=== PATIENT | female | born 1995 | race Caucasian/White ===

== ENCOUNTER → 2019-05-25 17:53 | Outpatient (CLI) | payer MEDICAID ==
[2016-01-11 22:56] VITALS: BMI 26.0
[~2019-05-25 17:53] MED LIST: AMBIEN5 MG PO; EPIFOAM10 GM TOPICAL; HYDROCODON-ACE1 EAC7 PO; IBUPROFEN600 MG PO; PRENAVITE1 TAB PO; TUCKS MEDICATE1 EACH TOPICAL; [UNRECOGNIZED DRUG - OTHER] TOPICAL
[2019-05-25 18:32] LABS: APPEARANCE CLEAR (CLEAR); BILIRUBIN NEGATIVE (NEGATIVE); COLOR STRAW (YELLOW); GLUCOSE NEGATIVE (NEGATIVE); KETONE NEGATIVE (NEGATIVE); NITRITE NEGATIVE (NEGATIVE); PROTEIN NEGATIVE (NEGATIVE); UROBILINOGEN NORMAL (NORMAL)
== END | disposition home or self-care (01) ==
LOC: D.LDO 17:53
PROVIDERS: ATTEND Obstetrics & Gynecology
DX: O26.899 Other specified pregnancy related conditions, unspecified trimester (principal); Z3A.00 Weeks of gestation of pregnancy not specified; R51 Headache

== ENCOUNTER 2019-07-02 00:54 | Outpatient (CLI) | payer MEDICAID ==
[2016-01-11 22:56] VITALS: BMI 26.0
[2019-07-02 01:30] LABS: APPEARANCE HAZY (CLEAR); BILIRUBIN NEGATIVE (NEGATIVE); COLOR YELLOW (YELLOW); GLUCOSE NEGATIVE (NEGATIVE); KETONE NEGATIVE (NEGATIVE); NITRITE NEGATIVE (NEGATIVE); PROTEIN 1+ mg/dL (NEGATIVE); UROBILINOGEN NORMAL (NORMAL)
[2019-07-02 01:31] LABS: BACTERIA MODERATE /hpf (NONE SEEN); EPITHELIAL CELLS 0-5 /hpf (0-5); MUCUS <1+ /lpf (NONE SEEN); RED CELLS - URINE 0-5 /hpf (0-5)
== END 2019-07-02 02:40 | disposition home or self-care (01) ==
LOC: D.LDO 00:54
PROVIDERS: ATTEND Student in an Organized Health Care Education/Training Program
DX: O26.893 Other specified pregnancy related conditions, third trimester (principal)

== ENCOUNTER 2019-07-23 04:55 | Inpatient (IN) | payer MEDICAID ==
[~2019-07-23] VITALS: Ht 152.4 cm; Wt 68.9 kg
[2019-07-23] MEDS ORDERED: BUSPAR10 MG PO (05:09)
[2019-07-23] MEDS ORDERED: PHENERGAN25 M1 PO (05:10)
[2019-07-23] MEDS ORDERED: ZOFRAN4 MG PO (05:11)
[2019-07-23 05:13] VITALS: BP 132/75; Ht 152.4 cm; Wt 68.9 kg
[2019-07-23 06:34] LABS: HEMOGLOBIN 10.2 g/dL (12-16); MCH 26.8 pg (26.0-34.0); MCHC 32.9 g/dL (31.0-37.0); MCV 81.4 fL (80.0-100.0); MEAN PLATELET VOLUME 9.8 fL (7.4-10.4); RBC 3.81 10x6/uL (4.00-5.40); RDW 14.4 % (11.5-14.5); WBC 5.8 10x3/uL (4.8-10.8)
[2019-07-23 06:35] LABS: UDS - AMPHET NEGATIVE QUAL (NEGATIVE); UDS - BARB NEGATIVE QUAL (NEGATIVE); UDS - BENZO NEGATIVE QUAL (NEGATIVE); UDS - COCAINE NEGATIVE QUAL (NEGATIVE); UDS - OPIATE NEGATIVE QUAL (NEGATIVE); UDS - PCP NEGATIVE QUAL (NEGATIVE); UDS - THC NEGATIVE QUAL (NEGATIVE)
--- NOTE | 2019-07-23 17:45 | NUR ---
pt received from recovery room, she is awake and alert. Rates pain at 0/10, fundus firm at u/1, midline with light bleeding noted. bikini incision covered with large white abd bandage that is clean and dry. alvarez cath to bedside drain with 200ml clear urine noted. IV to right hand infusing 20units pitocin via pump. denies nausea, side rails up x 2 with call light in reach.
--- NOTE | 2019-07-23 18:00 | NUR ---
dilaudid tire repairman started, rates pain at 4/10. fundus firm at u/1 with light bleeding, no clots noted with massage. lizzy pad changed. large cup of ice with sprite provided per request. assisstance provided to move up in bed and reposition pillows and head of bed elevated. family at bedside, call light in reach.
--- NOTE | 2019-07-23 19:30 | NUR ---
PT IN BED. FAMILY IN ROOM AT THIS TIME. PT ASSISTED WITH AT THIS TIME. PT STATES PAIN IS A 6. PT ENCOURAGED TO USE LONE LEAD LINEMAN. UNDERATNADING VERBAIZED. Laurie MCKAY RN
[2019-07-23 20:34] VITALS: BP 101/56
--- NOTE | 2019-07-23 20:34 | NUR ---
PT REC'D IN BED AT THIS TIME. LUNGS CLEAR. BS HYPOACTIVE. IV OF NS +20 PITOCIN INFUSING TO THE RT HAND AT 125 ML/HR. STIE CLEAR AND PATENT. DRESSING TO THE ABDOMEN CDI. FUNDUS FRIM AND MIDLINE WITH MODERATE LOCHIA NOTED.BERMAN CATH PATENT. 400 ML EMPTIED. SCDS ON AND FUNCTIONAL. NO ACUTE DISTRESS NOTED. SIDERAIL UP X2. L SADIQ MCKAY THE
--- NOTE | 2019-07-23 20:44 | NUR ---
PT MEDICATED WITH TORADOL FOR PAIN LEVEL OF 8 AT THIS TIME. PERICARE PROVIDED AT THIS TIME. WILL CONTINUE TO MONITOR. Laurie MCKAY RN
[2019-07-23 21:22] LABS: BASOPHILS 0.1 % (0-2); EOSINOPHILS 0 % (0-7); HEMOGLOBIN 8.2 g/dL (12-16); IMMATURE GRANULOCYTES 0.2 % (0-5); LYMPHOCYTES 9.4 % (15-50); MCH 26.9 pg (26.0-34.0); MCHC 33.3 g/dL (31.0-37.0); MCV 80.7 fL (80.0-100.0); MEAN PLATELET VOLUME 9.5 fL (7.4-10.4); MONOCYTES 4.7 % (2-11); NEUTROPHILS 85.6 % (40-80); RBC 3.05 10x6/uL (4.00-5.40); RDW 14.3 % (11.5-14.5)
[2019-07-23 21:23] LABS: HEMATOCRIT 24.6 % (36.0-48.0); PLATELET COUNT 211 10x3/uL (130-400); WBC 13.1 10x3/uL (4.8-10.8)
--- NOTE | 2019-07-23 21:26 | NUR ---
PT STATES THAT PAIN IS A 6 AT THIS TIME. WILL CONTINUE TO MONITOR. Laurie MCKAY RN
--- NOTE | 2019-07-23 22:45 | NUR ---
PT ASLEEP AT THIS TIME. EASILY AWAKENED. NO NEEDS VOICED AT THIS TIME. Laurie MCKAY RN
--- NOTE | 2019-07-23 23:30 | NUR ---
PT ASSISTED WITH AT THIS TIME. NO OTHER NEEDS VOICED AT THIS TIME. Laurie MCKAY RN
[2019-07-24 01:20] VITALS: BP 112/56
--- NOTE | 2019-07-24 01:20 | NUR ---
PT REC'D IN BED AT THIS TIME. NO DISTRESS NOTED. PT COMPLAINS OF PAIN AT A 6. PT ENCOURAGED TO USE HAMMER OPERATOR TO ASSIST WITH PAIN CONTROL. OERRICARE PROVIDED. FUNDUS FIRM WITH MODERATE LOCHIA NOTED. WILL CONTINUE TO MONITOR. Laurie MCKAY RN
--- NOTE | 2019-07-24 03:12 | NUR ---
pt medicated with toradol to asist with pain control. blair tranrn
--- NOTE | 2019-07-24 05:59 | NUR ---
PT'S PARIMUTUEL CLERK IS COMPLETE AT THIS TIME. DR BUTTERFIELD CALLED TO NOTIFY HIM F SUCH. T.O. ORDER REC'D PT PROCEED W/DR LEE'S REGULAR POST OP PO PAIN MEDICATION OF NORCO 10/325MG 1 TAB Q 4HRS FOR PAIN AND IBUPROFREN 600MG PO Q 6 HRS.
[2019-07-24 06:00] VITALS: BP 108/55
--- NOTE | 2019-07-24 06:10 | NUR ---
pt medicated for pain level of 9. will continue to monitor. blair tran rn
--- NOTE | 2019-07-24 07:30 | NUR ---
to pts' room, pt is sitting up in the bed eating breakfast. regular breakfast tray served by dietary. will return for am assessment. srup x 2, call light and phone within reach.
[2019-07-24 07:38] LABS: BASOPHILS 0.1 % (0-2); EOSINOPHILS 0.3 % (0-7); HEMATOCRIT 22.8 % (36.0-48.0); HEMOGLOBIN 7.6 g/dL (12-16); IMMATURE GRANULOCYTES 0.1 % (0-5); LYMPHOCYTES 23.1 % (15-50); MCHC 33.3 g/dL (31.0-37.0); MCV 81.1 fL (80.0-100.0); MEAN PLATELET VOLUME 9.5 fL (7.4-10.4); MONOCYTES 3.2 % (2-11); NEUTROPHILS 73.2 % (40-80); PLATELET COUNT 204 10x3/uL (130-400); RBC 2.81 10x6/uL (4.00-5.40); RDW 14.4 % (11.5-14.5)
[2019-07-24 08:12] LABS: RAPID PLASMA REAGIN Non Reactive (Non Reactive)
--- NOTE | 2019-07-24 08:15 | NUR ---
dr. hilario calls to md sumi reports he put in an order for 1 unit prbc's to be given.
--- NOTE | 2019-07-24 09:00 | NUR ---
to pt's room, iv sl, alvarez cath dc'd intact with 700 ml's light yellow.
[2019-07-24 10:06] VITALS: BP 125/65
--- NOTE | 2019-07-24 11:30 | NUR ---
pt calls out family and consumer sciences professor light and reqeusts to get up to pee. douglas chavarria rn to room. peripad noted to have small rubra lochia. pt assisted up to br, gait slow and steady. voided 600 ml's, 2 dime sized clots noted. pericare done per self with warm wet washcloths, peripads provided. pt back to bed. denies all other needs. sr up x2, call light and phone within reach.
--- NOTE | 2019-07-24 12:18 | NUR ---
phone call made to the blood bank inquiring about prbc's, states she has not began to cross 1 unit, as blood has not been drawn. will now cross blood on admit draw, and will call ld when blood is ready.
--- NOTE | 2019-07-24 13:15 | NUR ---
pt assisted up to br, gait slow and steady. pt voids 400 cc's clear yellow urine, with one dime sized clot noted. pericare done with warm wet washcloths, peripanties and peripad on. pt back to bed. srup x2, call light and phone within reach. see emar for all meds adm by this rn.
--- NOTE | 2019-07-24 14:35 | NUR ---
to room to start first unit prbc's. pt reqeusts to get up to the bathroom to pee before we start the blood. pt assisted up to br, gait slow but steady. pt voids 200 ml's clear yellow urine with one dime sized clot noted. pericare done with warm wet washcloths. pt then back to bed with assist from her . pt denies all other needs at this time.
--- NOTE | 2019-07-24 14:55 | NUR ---
ns connected to sl, flushed with 50 cc's ns. no redness or swelling noted to iv site. first unit prbc's up and infusing at 75 ml/hr on pump. side effects and blood transfusion explained to pt. vs stable at this time. srup x2, call light and phone within reach. family at bedide.
--- NOTE | 2019-07-24 15:00 | NUR ---
pt assisted up to br by joe carty rn. voids moderate amount per self without difficulty. pericare per self, with warm wet washcloths. peripanties and pads on. prbc's continue to infuse. pt denies all c/o. pt back to bed. srup x 2, call light and phone within reach.
--- NOTE | 2019-07-24 17:00 | NUR ---
prbc's completed, line flushed till clear with ns. iv sl. pt denies sob, difficulty breathing, chills, or flank pain. ice water served to pt. pt denies all other needs at this time. srup x2, call light and phone within reach.
--- NOTE | 2019-07-24 19:00 | NUR ---
PATIENT REPORT RECEIVED FROM RANJITH KAISER RN TO ASSUME PT CARE.
[2019-07-24 20:58] VITALS: BP 121/57
--- NOTE | 2019-07-24 20:58 | NUR ---
SHIFT ASSESSMENT COMPLETED, SEE FLOWSHEET.
--- NOTE | 2019-07-24 22:17 | NUR ---
PAIN MEDICATION ADMINISTERED AT THIS TIME PER MD ORDERS AND PT REQUEST. SEE EMAR.
--- NOTE | 2019-07-24 22:56 | NUR ---
TO NURSERY VIA OPEN CRIB PER MOTHERS REQUEST. BED REMAINS LOCKED IN LOW POSITION, SIDE RAILS UPX2, CALL WEST AND TRAY TABLE IN REACH. WILL CONTINUE TO MONITOR
--- NOTE | 2019-07-24 23:59 | NUR ---
PATIENT SITTING UP IN BED WATCHING TV. DENIES ANY NEEDS AT THIS TIME. WILL CONTINUE TO MONITOR
--- NOTE | 2019-07-25 02:20 | NUR ---
PT RESTING QUIETLY WITH EYES CLOSED, NO DISTRESS NOTED. EASILY AROUSED TO VERBAL. PT DENIES NEEDS. WILL CONTINUE TO MONITOR.
--- NOTE | 2019-07-25 04:38 | NUR ---
Marya WALDRON TO PT ROOM, PT DENIES NEEDS AT THIS TIME. WILL CONTINUE TO MONITOR
--- NOTE | 2019-07-25 06:30 | NUR ---
PT SITTING UP IN BED, EYES OPEN. DENIES NEEDS. WILL CONTINUE TO MONITOR.
[2019-07-25 08:21] VITALS: BP 142/71
--- NOTE | 2019-07-25 08:21 | NUR ---
AM ASSESSMENT COMPLETE, PT UP TO BR PER SELF, GAIT SLOW AND STEADY, PERICARE PER SELF WITH WARM WET WASHCLOTHES, SCANT RUBRA LOCHIA, PERIPANTIES/PAD ON, PT BACK TO BED. IN ROOM, FOB ASLEEP ON COUCH. PT EDUCATED ON THE IMPORTANCE OF EMPTYING BLADDER AND EARLY AMBULATION. MED ADM RECORD REVIEWED WITH PT, SEE EMAR FOR ALL MEDS ADM BY THIS RN. PT DENIES ALL OTHER NEEDS, SRUP X2, CL/PHONE IN REACH.
--- NOTE | 2019-07-25 08:55 | NUR ---
SEE EMAR FOR PAIN MEDICATION REQUESTED BY PT. FRESH WATER PROVIDED. PT DENIES ALL OTHER NEEDS AT THIS TIME. CL/PHONE WITHIN REACH.
--- NOTE | 2019-07-25 12:00 | NUR ---
Formula and nipples provided at pt request. Pt c/o of discomfort. Encouraged to ambulate. SRUP x2, cl/phone in reach. FOB at bedside holding infant. Ice provided.
--- NOTE | 2019-07-25 15:15 | NUR ---
pt calls out documentation specialist light and requests her motrin for c/o back aching. see emar for all meds adm by this rn. pt is sitting up in the bed feeding . dr. borjas served at pt's request. srup x2, call light and phone within reach. pt denies all other needs at this time.
--- NOTE | 2019-07-25 17:09 | NUR ---
PT REQUESTED PAIN MED FOR ABDOMEN AND BACK PAIN, SEE EMAR FOR MEDS ADM BY THIS RN. PT IN BED WITH SUPPER TRAY AT BEDSIDE. FOB IN ROOM AND CARING FOR . ENCOURAGEMENT AND CONTINUED EDUCATION PROVIDED ON AMBULATION. CALL LIGHT AND PHONE IN REACH. SRUP X2. DENIES ALL OTHER NEEDS AT THIS TIME.
--- NOTE | 2019-07-25 19:33 | NUR ---
PM ROUNDS MADE, PT HOLDING , FOB LAYING IN BED WITH PT, PT'S OTHER CHILD ON COUCH, INFORMED PT THAT I WILL BE BACK SHORTLY TO DO ASSESSMENT, PT VERBALIZES UNDERSTANDING, DENIES NEEDS AT THIS TIME
--- NOTE | 2019-07-25 20:15 | NUR ---
PT AMB, GAIT STEADY, IN HALLWAY WITH DAUGHTER
[2019-07-25 20:45] VITALS: BP 118/61
--- NOTE | 2019-07-25 20:45 | NUR ---
PT BACK IN ROOM, ASSESSMENT PER FLOW SHEET, VS OBTAINED, SALINE LOCK IN RIGHT HAND INTACT WITH NO REDNESS OR EDEMA, FF, ML, U/2, PT REPORTS LITE BLEEDING WITH 1 SMALL PEA SIZE CLOT, BIKINI LINE INC WITH MARYCARMEN CDI WITH NO DRAINAGE NOTED, SLY PAD OVER INC FOR COMFORT AND MOISTURE CONTROL, PT REPORTS FLATUS, NO BM AND VOIDING WITH NO DIFFICULTY, PT RATES PAIN 6/10, WILL ADM PAIN MED AND MOTRIN WHEN DUE, PT VERBALIZES UNDERSTANDING, DENIES NEEDS
--- NOTE | 2019-07-25 21:04 | NUR ---
ADM JUANIS AND MARBIN PER MD ORDERS, SEE EMAR, PT INFORMED THAT SHE WILL BE MOVING TO [facility]OM[facility], PT VERBALIZES UNDERSTANDING
--- NOTE | 2019-07-25 21:25 | NUR ---
PT TRANSFERRED VIA AMB, GAIT STEADY, TO ROOM 1222, WITH ALL BELONGINGS AND FAMILY, BACK IN NSY, PT ORIENTED TO ROOM, BED IN LOW POSITION, SIDE RAILS X 2, CALL LIGHT IN REACH
--- NOTE | 2019-07-25 21:40 | NUR ---
INFANT TO ROOM VIA OPEN CRIB CART, BANDS CHECKED
--- NOTE | 2019-07-25 22:10 | NUR ---
REPORT RECEIVED FROM KERRIE BABCOCK
--- NOTE | 2019-07-25 22:28 | NUR ---
PT LAYING IN BED, HOLDING , OTHER CHILD IN BED WITH PT, FOB AT BEDSIDE, PT CONTINUE RATING PAIN THE SAME, INFORMED PT THAT ISABEL SIMON RN WILL ADM PAIN MED WHEN DUE, PT VERBALIZES UNDERSTANDING, DENIES NEEDS AT THIS TIME
--- NOTE | 2019-07-25 22:57 | NUR ---
PT IN BED WATCHING TV. DENIES ANY NEED. CL IN REACH. SR UP X2
--- NOTE | 2019-07-26 00:11 | NUR ---
PT LAYING IN BED. AWAKE AND ALERT. VS TAKEN. VSS. DENIES NEEDS. CL IN REACH. SR UP X2. WILL MONITOR
[2019-07-26 00:13] VITALS: BP 120/62
--- NOTE | 2019-07-26 01:05 | NUR ---
LAYING IN BED RESTING WITH EYES CLOSED. RESP WNL. NO DISTRESS NOTED. CL IN REACH. SR UP X2
--- NOTE | 2019-07-26 01:37 | NUR ---
C/O PAIN, PAIN MED GIVEN PER ORDER, SEE EMAR. DENIES ANY OTHER NEEDS
--- NOTE | 2019-07-26 02:54 | NUR ---
RESTING WITH EYES CLOSED IN BED. NO DISTRESS NOTED. SR UP X2. CL IN REACH
[2019-07-26 04:29] VITALS: BP 126/70
--- NOTE | 2019-07-26 04:30 | NUR ---
ROOM CHECK DONE, RESTING IN BED. EYES CLOSED. NO DISTRESS NOTED. CL IN REACH. SR UP X2
--- NOTE | 2019-07-26 05:48 | NUR ---
LAYING IN BED, HOLDING INFANT. AWAKE AND ALERT. DENIES ANY NEEDS, WILL MONITOR
--- NOTE | 2019-07-26 06:20 | NUR ---
REMAINS LAYING IN BED. RESTING WITH EYES CLOSED. NO DISTRESS NOTED. RESP WNL. CL IN REACH. SR UP X2. WILL MONITORT
[2019-07-26 07:25] VITALS: BP 109/61
--- NOTE | 2019-07-26 07:25 | NUR ---
RECEIVED PT LYING IN SEMI-ARGUELLES'S POSITION IN BED. HOLDS INFANT WITH MUCH WARMTH SHOWN. AWAKE. VSS. HRRR WITHOUT AUDIBLE MURMUR. BBS CLEAR. BS X 4. ABDOMEN SOFT/NON-DISTENDED. FUNDUS FIRM AT U/1. RUBRA LOCHIA SMALL AMT. ABDOMINAL INCISION WITHOUT REDNESS, SWELLING OR DRAINAGE NOTED. MARYCARMEN INTACT. NEG HOMANS' SIGN. PPP. NO EDEMA NOTED TO BLE. SL TO RIGHT HAND CLEAR. PT DENIES HEAVY BLEEDING. STATES PASSED FEW SMALL CLOTS. DENIES ANY CLOTS THE SIZE OF AN EGG OR BIGGER. PT C/O BACK AND INCISIONAL PAIN OF "7" ON 0-10 PAIN SCALE. NORCO 10 AND MOTRIN 600 MG GIVEN PO ORDERED. PT INSTRUCTED ON MEDS. VERBALIZES UNDERSTANDING. SR UP X2. CALL LIGHT IN REACH.
--- NOTE | 2019-07-26 08:49 | NUR ---
SL DC'D WITH CATHELON INTACT. PRESSURE BANDAGE TO SITE. PT C/O SHARP PAIN TO LEFT SIDE THAT RADIATES TO BACK. STATES PASSING GAS. PT ENCOURAGED TO AMBULATE IN HALLS. VERBALIZES UNDERSTANDING.
--- NOTE | 2019-07-26 09:04 | NUR ---
PT AMBULATORY IN HALLS WITH AT THIS TIME.
--- NOTE | 2019-07-26 11:28 | NUR ---
PT SITTING UP IN BED. EYES CLOSED. RESP NON-LABORED. PT WAKES UPON VERBAL STIMULATION. DENIES NEEDS OR C/O.
--- NOTE | 2019-07-26 11:45 | NUR ---
DR LEE VISITS WITH PT. ORDER RECEIVED TO DC HOME AND F/U NEXT MONDAY FOR STAPLE REMOVAL.
--- NOTE | 2019-07-26 11:48 | NUR ---
PT C/O BACK PAIN. NORCO 10/325 GIVEN PO ORDERED. PT INSTRUCTED ON MED. VERBALIZES UNDERSTANDING.
[2019-07-26] MEDS ORDERED: HYDROCODON-ACE1 EA10 PO (12:06)
[2019-07-26] MEDS ORDERED: MOTRIN600 MG PO (12:07)
--- NOTE | 2019-07-26 12:25 | NUR ---
DISCHARGE INSTRUCTIONS GIVEN TO PT. PT VERBALIZES UNDERSTANDING OF ALL INSTRUCTIONS. COPIES GIVEN TO PT. RX FOR NORCO AND MOTRIN GIVEN TO PT. PT AWAITS INFANT'S DISCHARGE.
--- NOTE | 2019-07-26 13:20 | NUR ---
PT READY FOR DISCHARGE. DISCHARGED IN STABLE CONDITION WITH VIA WHEELCHAIR PER AUXILIARY STAFF TO PRIVATE VEHICLE.
== END 2019-07-26 13:20 | disposition home or self-care (01) | DRG 788 ==
LOC: D.LD 04:55 → D.WS 07-25 21:15
PROVIDERS: ADMIT Obstetrics & Gynecology; ATTEND Obstetrics & Gynecology
PROC: 10D00Z1 Extraction of Products of Conception, Low, Open Approach (ICD-10-PCS; principal; 2019-07-23 15:00)
DX: O98.32 Other infections with a predominantly sexual mode of transmission complicating childbirth (principal); A59.9 Trichomoniasis, unspecified; O99.334 Smoking (tobacco) complicating childbirth; F17.200 Nicotine dependence, unspecified, uncomplicated; O62.1 Secondary uterine inertia; Z3A.39 39 weeks gestation of pregnancy; Z37.0 Single live birth

== ENCOUNTER 2019-08-05 11:46 | Emergency (ER) | payer MEDICAID ==
[~2019-08-05] VITALS: Ht 152.4 cm; Wt 63.2 kg
[~2019-08-05 11:46] MED LIST changes: +BUSPAR10 MG PO; +HYDROCODON-ACE1 EA10 PO; +MOTRIN600 MG PO; +PHENERGAN25 M1 PO; +ZOFRAN4 MG PO
[2019-08-05 12:06] VITALS: Ht 152.4 cm; Wt 63.2 kg
[2019-08-05 12:51] LABS: BASOPHILS 0.1 % (0-2); HEMATOCRIT 37.3 % (36.0-48.0); HEMOGLOBIN 11.9 g/dL (12-16); IMMATURE GRANULOCYTES 0.1 % (0-5); LYMPHOCYTES 27.2 % (15-50); MCH 26.9 pg (26.0-34.0); MCHC 31.9 g/dL (31.0-37.0); MCV 84.2 fL (80.0-100.0); MEAN PLATELET VOLUME 8.9 fL (7.4-10.4); MONOCYTES 2.6 % (2-11); RBC 4.43 10x6/uL (4.00-5.40); RDW 14.2 % (11.5-14.5); WBC 6.9 10x3/uL (4.8-10.8)
[2019-08-05 12:55] LABS: PLATELET COUNT 510 10x3/uL (130-400)
[2019-08-05 13:11] LABS: ALBUMIN 3.5 g/dL (3.4-5.0); ALKALINE PHOSPHATASE 114 U/L (46-116); ALT (SGPT) 22 U/L (10-68); BILIRUBIN - TOTAL 0.34 mg/dL (0.2-1.3); CALC OSMOLALITY 279 mosm/kg (275-300); CALCIUM 9.2 mg/dL (8.5-10.1); CARBON DIOXIDE 24.8 mmol/L (21.0-32.0); CHLORIDE - SERUM 104 mmol/L (98-107); CREATININE - SERUM 0.6 mg/dL (0.6-1.3); GLUCOSE 92 mg/dL (74-106); POTASSIUM - SERUM 4.4 mmol/L (3.5-5.1); PROTEIN - SERUM 7.8 g/dL (6.4-8.2); SODIUM 141 mmol/L (136-145); UREA NITROGEN 11 mg/dL (7-18); eGFR NON AFRICAN AMERICAN > 90 mL/min (90-120)
[2019-08-05 14:36] VITALS: BP 114/52
== END 2019-08-05 14:37 | disposition home or self-care (01) ==
LOC: D.ER 11:46
PROVIDERS: Family Medicine
DX: O90.89 Other complications of the puerperium, not elsewhere classified (principal)